=== PATIENT | female | born 1965 | race Two or more races ===

== ENCOUNTER 2023-12-05 23:18 | Emergency (ER) | payer MEDICAID, OTHER ==
[~2023-12-05] VITALS: Ht 154.9 cm; Wt 62.8 kg
[2023-12-05 23:51] LABS: Urine Bacteria None Seen /hpf (None Seen); Urine WBC None Seen /hpf (0 - 5)
[2023-12-05] MEDS ORDERED: TERB1CRE31 EX (23:55)
[2023-12-05] MEDS ORDERED: PHENSUP38 PR (23:55)
[2023-12-05] MEDS ORDERED: ACET500T58 PO (23:55)
[2023-12-05] MEDS ORDERED: IBUP-1455 PO (23:55)
[2023-12-05 23:58] LABS: Urine Blood Negative /uL (Negative); Urine Clarity Clear (Clear); Urine Protein, UAD Negative (Negative); Urine Specific Gravity 1.004 (1.001-1.035); Urine Urobilinogen Normal (Negative); Urine pH 6.5 (5.0-9.0)
[2023-12-05 23:59] LABS: Urine Color STRAW (Yellow)
[2023-12-06 00:58] VITALS: BP 135/76; PULSE 81; RESP 20; TEMP 97.8; O2SAT 95
[2023-12-06] MEDS: diphenhdrAMINE HCL 25 MG CAP PO ONE (01:28)
[2023-12-06] MEDS: DexAMETHasone SOD PHOS 10MG/1ML VIAL INJ IM ONE (01:35)
[2023-12-06] MEDS: KETOROLAC TROMETH 60MG/2ML VIAL IM ONE (01:35)
== END 2023-12-06 01:38 | disposition home or self-care (01) ==
LOC: ER 23:18
DX: K64.9 Unspecified hemorrhoids (principal); R21 Rash and other nonspecific skin eruption
CPT/HCPCS: 81001; 96372; 99284; J1100; J1885

== ENCOUNTER 2023-12-08 06:45 | Emergency (ER) | payer MEDICAID ==
[~2023-12-08] VITALS: Ht 154.9 cm; Wt 61.2 kg
[~2023-12-08 06:45] MED LIST: ACET500T58 PO; IBUP-1455 PO; PHENSUP38 PR; TERB1CRE31 EX
[2023-12-08 07:46] VITALS: BP 110/75; PULSE 77; RESP 15; TEMP 98; O2SAT 98
[2023-12-08] MEDS: FAMOTIDINE 20 MG TAB PO ONE (08:44)
[2023-12-08] MEDS: methylPREDNISolone SOD SUCC 125 MG/2 ML VL IM ONE (08:44)
[2023-12-08] MEDS: diphenhdrAMINE HCL 25 MG CAP PO ONE (08:44)
[2023-12-08] MEDS ORDERED: HYDR2.5L4 TOP (08:48)
[2023-12-08] MEDS ORDERED: PRED20TA2 PO (08:48)
== END 2023-12-08 08:55 | disposition home or self-care (01) ==
LOC: ER 06:45
DX: L25.9 Unspecified contact dermatitis, unspecified cause (principal); Z88.8 Allergy status to other drugs, medicaments and biological substances; Z79.899 Other long term (current) drug therapy
CPT/HCPCS: 96372; 99283; J2919

== ENCOUNTER 2024-03-02 20:12 | Emergency (ER) | payer MEDICAID ==
[~2024-03-02] VITALS: Ht 154.9 cm; Wt 62.4 kg
[~2024-03-02 20:12] MED LIST changes: +HYDR2.5L4 TOP; +PRED20TA2 PO
--- NOTE | 2024-03-02 20:33 | ED.PDOC ---
General HPI Comments HPI: Poor Historian. 59y/o female who presents to the ED for chief complaint of urinary problems. Pt states she has been having pain on urination and increased urinary frequency for one day. When asked only, patient says she is having some suprapubic discomfort. Pt otherwise denies nausea, vomiting, diarrhea, fever, cough, chills, or hematuria. Pt otherwise denies any other symptoms at this time. Patient denies any fever. Temp: 97.7 F Heart rate: 94 RR: 17 BP: 131/84 02 sat: 97 % on room air PMH: hypothyroidism, PSH: 2x c-sections, cholecysectomy Social history: denies tobacco use, denies ETOH use, denies drug use Meds: denies Allergies: aspirin, naproxen REVIEW OF SYSTEMS: CONSTITUTIONAL: Denies acute: fever, diaphoresis, chills, generalized weakness. HEAD: Denies acute: headache, photophobia Eyes: Denies acute: Double vision, vision loss, eye pain, eye discharge. EARS: Denies acute: tinnitus, hearing loss, ear discharge, ear pain, THROAT: Denies acute: sore throat, swelling, difficulty swallowing , pain with swallowing, change in voice. NECK: Denies acute: neck pain, neck swelling, stiff neck. HEART: Denies acute : chest pain, palpitations, LUNGS: Denies acute: SOB, wheezing, cough, hemoptysis ABDOMEN: Denies acute: abdominal pain, Nausea, Vomiting, diarrhea, melena , hematemesis, hematochezia SKIN: Denies acute: rash, redness, lesions, itchiness. EXTREMITIES: Denies acute: calf pain, numbness, tingling, weakness, denies pain in extremity. Denies acute: Low back pain. Neuro: Denies acute: focal neurological deficit, motor or sensory focal neurological deficit, tremors, seizure like activity, confusion, dizziness, change in mental status, loss of bowel or bladder function, cauda equina like symptoms. : Denies acute: hematuria, flank pain, PSYCH: Denies acute: hallucination, suicidal ideation, homicidal ideation. FEMALE: Denies acute: abnormal vaginal bleeding, foul odor, unusual discharge. PHYSICAL EXAM: General: no acute distress, awake and alert. Head: normocephalic, atraumatic. Neck: supple, trachea is midline, no swelling. Throat: Normal phonation. Eyes:, no erythema, no purulent discharge, no proptosis, no icterus. Heart: regular rate, regular rhythm, no significant murmur appreciated. Lungs: no apparent respiratory distress, Able to speak in full sentences. No wheezing, no rhonchi, no crackles. No stridors Clear to auscultation bilaterally. Abdomen: Suprapubic tender to palpation, non distended, soft, no guarding, no rebound, + bowel sounds. Neuro: Awake, Alert, oriented to name, self, situation, follows commands GCS=15. Speech is normal. Skin: no petechia, no purpura, no cyanosis, non-pale, not jaundice. Lower extremities: --no - Pitting edema no deformity, no focal swelling, no calf TTP. Makes eye contact. moves all four extremities. Face: no apparent facial droop. No CVA tenderness to percussion bilaterally. Ambulating in the ED independently. Ears: Normal appearing TM b/l, Stroke: finger to nose cerebellar testing is intact. No pronator drift. 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 No nystagmus. No nuchal rigidity, Kernig's sign, Brudzinski's sign, no meningeal signs. Chief Complaint: Urinary Time Seen by MD: 20:32 Reviewed notes: Allergies Allergies: Coded Allergies: Aspirin (Verified Allergy, Unknown, 12/08/23) Naproxen (Verified Allergy, Unknown, 12/08/23) Home Meds Active Scripts Hydrocortisone (Topical) (Hydrocortisone) 2.5 % Lot, 1 APPLIC TOP BID for 7 Days, #60 ML 0 Refills Prov:LIAM FITZGERALD HYDROPULPER 12/08/23 Prednisone (Prednisone) 20 Mg Tab, 40 MG PO DAILY for 5 Days, #10 TAB 0 Refills Prov:LIAM FITZGERALD HYDROPULPER 12/08/23 Acetaminophen (Acetaminophen) 500 Mg Tab, 500 MG PO Q4HP PRN, #20 TAB Prov:LAUREN GOFF PAC 12/05/23 Ibuprofen Micronized (Ibuprofen) 800 Mg Tab, 800 MG PO Q8HP PRN, #20 TAB Prov:LAUREN GOFF PAC 12/05/23 Phenylephrine-Shark Liver Oil- (Hemorrhoidal Suppositorie 0.25-3-85.5 %) 1 Sup Sup, 1 SUP SC BID, #20 SUPP Prov:LAUREN GOFF PAC 12/05/23 Terbinafine Hcl (Topical) ([facility]) 1 % Cre, 1 % EX BID for 14 Days, #60 CRE Prov:LAUREN GOFF PAC 12/05/23 Information Source: Patient Mode of Arrival: Ambulatory Brought in by: self Past Medical History PAST MEDICAL HISTORY: Thyroid Surgical History: Cholecystectomy, 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 Was a procedure done?: No Differential Diagnosis Kidney stone (Female): N/A Urinary Problem (Female): Other (DDX include Diverticulitis, colitis, gastroenteritis, acute abdomen, SBO, enteritis, constipation, volvulus, appendicitis, Gallbladder disease, choledocolithiasis, ascending cholangitis, pancreatitis, intraAbdominal mass/neoplasm, hepatitis, UTI, pylonephritis, kidney stone, aneurysm, dissection, Inflammatory bowel disease, gastroparesis, ischemic bowel, ovarian torsion, ovarian cyst/mass, tubo-ovarian abscess, PID, STD.), N/A X-Ray, Labs, Meds, VS Vital Signs Date Time Temp Pulse Resp B/P (MAP) Pulse Ox O2 Delivery O2 Flow Rate FiO2 03/02/24 20:20 97.7 94 17 131/84 (100) 97 Lab Test 03/02/24 20:56 03/02/24 20:40 Range/Units Urine Color Colorless Yellow Urine Clarity Clear Clear Urine pH 6.5 5.0-9.0 Urine Specific [place] 1.003 1.001-1.035 Urine Protein Negative Negative Urine Ketones Negative Negative Urine Blood 1+ H Negative /uL Urine Nitrite Negative Negative Urine Bilirubin Negative Negative Urine Urobilinogen Normal Negative mg/dL Urine Leukocyte Esterase 2+ Negative /uL Urine RBC 1 0 - 4 /hpf Urine WBC 25 0 - 5 /hpf Urine Squamous Epithelial Cells Few <5 /hpf Urine Bacteria Few H None Seen /hpf Urine Glucose Normal Normal mg/dL White Blood Count 6.5 4.4-10.8 10^3/uL Red Blood Count 4.62 4.0-5.20 10^6/uL Hemoglobin 14.5 12.2-16.2 g/dL Hematocrit 42.0 36.0-46.0 % Mean Corpuscular Volume 90.8 80.0-100.0 fL Mean Corpuscular Hemoglobin 31.3 28.0-32.0 pg Mean Corpuscular Hemoglobin Concent 34.5 32.0-36.0 g/dL Red Cell Distribution Width 13.0 11.8-14.3 % Platelet Count 303 140-450 10^3/uL Mean Platelet Volume 7.7 6.9-10.8 fL Neutrophils (%) (Auto) 54.9 37.0-80.0 % Lymphocytes (%) (Auto) 34.3 10.0-50.0 % Monocytes (%) (Auto) 8.0 0.0-12.0 % Eosinophils (%) (Auto) 2.2 0.0-7.0 % Basophils (%) (Auto) 0.6 0.0-2.0 % Neutrophils # (Auto) 3.6 1.6-8.6 10 ^3/uL Lymphocytes # (Auto) 2.2 0.4-5.4 10 ^3/uL Monocytes # (Auto) 0.5 0-1.3 10 ^3/uL Eosinophils # (Auto) 0.1 0-0.8 10 ^3/uL Basophils # (Auto) 0 0-0.2 10 ^3/uL Nucleated Red Blood Cells 0.0 % Sodium Level 142 136-145 mmol/L Potassium Level 3.8 3.5-5.1 mmol/L Chloride Level 108 H 98-107 mmol/L Carbon Dioxide Level 26 20-31 mmol/L Anion Gap 8 5-15 Blood Urea Nitrogen 8 L 9-23 mg/dL Creatinine 0.68 0.550-1.02 mg/dL Glomerular Filtration Rate Calc 102 >90 mL/min BUN/Creatinine Ratio 11.8 10.0-20.0 Serum Glucose 98 74-106 mg/dL Lactic Acid Level 1.1 0.4-2.0 mmol/L Calcium Level 10.0 8.7-10.4 mg/dL Total Bilirubin 0.4 0.2-1.0 mg/dL Aspartate Amino Transferase (AST) 13 13-40 U/L Alanine Aminotransferase (ALT) 19 7-40 U/L Alkaline Phosphatase 84 46-116 U/L Troponin I High Sensitivity < 3 L </=34 ng/L Total Protein 7.5 5.7-8.2 g/dL Albumin 4.8 3.2-4.8 g/dL Lipase 52 12-53 U/L [address] [address] Ph: [phone] DIAGNOSTIC IMAGING Diagnostic Imaging Report : [id number] Signed PATIENT: MELYSSA BRITTONACCT: [id number] UNIT: [id number] : 1965 LOC: ER ROOM / BED: / AGE / SEX: 59 / F ADM STATUS: REG ER SERVICE 25 ORDERING PHYSICIAN: KEVEN FRANCOIS DO PROCEDURE(s): ABPL - CT AB PEL WO CON-NO ORAL OR IV REASON: suprapubic pain ORDER NUMBER(s): [id number], ACCESSION NUMBER(s): [id number] CLINICAL HISTORY: suprapubic pain TECHNIQUE: CT of the abdomen and pelvis was performed without intravenous contrast. This exam was performed according to our departmental dose optimization program. Up-to-date CT equipment and radiation dose reduction techniques are utilized as appropriate. CTDI: [CTDIvol] DLP: 389.36 WID: COMPARISON: None FINDINGS: Lower Thorax: Unremarkable. Liver and Biliary system: Mild hepatomegaly measuring 19 cm craniocaudal. Prior cholecystectomy. No definite hepatic lesion. No biliary ductal dilatation Spleen: Unremarkable. Adrenal Glands and Kidneys: Unremarkable. Pancreas and Retroperitoneum: Unremarkable. Aorta and Major Vessels: Unremarkable. Bowel, Mesentery and Peritoneal space: The small and large bowel loops are normal in caliber. Normal appendix. Mild distal colonic diverticulosis. No free air or fluid collection. Pelvis: Unremarkable. Abdominal wall and Osseous Structures: Mild multilevel lower thoracic and lumbar spondylosis with moderate degenerative disc disease seen at L5-S1. No destructive osseous lesion. IMPRESSION: 1. No bowel obstruction, fluid collection, or free air. Normal appendix 2. Mild distal colonic diverticulosis 3. Mild hepatomegaly. ATED BY: MATTHEW FERRER MD DICTATED DATE/TIME: 03/02/242216 SIGNED BY: MATTHEW FERRER MD SIGNED DATE/TIME: 03/02/242216 CC: Time of 1ST Reevaluation: 22:26 Reevaluation 1ST: Improved Patient Education/Counseling: Diagnosis, Treatment Family Education/Counseling: No Family Present Comments Patient presented with the above HPI.---suprapubic/urinary symptoms---workup was initiated. patient was found with the above mentioned diagnosis. Patient was given: [place], Rocephin, fluids. Patient ED course and VS have been stabilized. Patient has been reassessed in the ED and remained in a stable condition. Pertinent incidental findings were discussed with the patient and/or family. Patient/family voices understanding and is agreeable with plan. Patient has been observed in the ED adequate length of time to insure improvement/stability. patient was discharged home in a stable condition All the reports of any imaging studies that were ordered by myself were reviewed by myself. Departure 1 Departure Time of Disposition: 21:11 Impression: Primary Impression: UTI (urinary tract infection) Disposition: 01 HOME / SELF CARE / HOMELESS Condition: Stable Additional Instructions: Additional discharge instructions: You MUST follow-up with your primary care/family doctor in 1 to 2 days. If you are unable to see your primary care/family doctor, please return to our emergency room for re-assessment and re-evaluation in 1 to 2 days. Return to the emergency room here in our facility or to the nearest ER [facility] if your symptoms change or worsen. CONSULTATIONS: you MUST Follow-up for consultation as soon as possible with: urology and OB Gyne doctor in 1-2 days. Please call for appointment. You MUST call the consultants office yourself to make an appointment. You may need to arrange that through your insurance and/or your primary/family doctor. If you are unable to see the polymer materials consultant in 1 to 2 days, you must return to our emergency room (or any other ER of your choice) for re-assessment and re- evaluation. Adequate fluid hydration. here is a copy of your radiology report performed in the ED: [address], [place] - [address] Ph: [phone] DIAGNOSTIC IMAGING Diagnostic Imaging Report : [id number] Signed PATIENT: MELYSSA BRITTON ACCT: [id number] UNIT: [id number] : 1965 LOC: ER ROOM / BED: / AGE / SEX: 59 / F ADM STATUS: REG ER SERVICE 25 ORDERING PHYSICIAN: KEVEN FRANCOIS DO PROCEDURE(s): ABPL - CT AB PEL WO CON-NO ORAL OR IV REASON: suprapubic pain ORDER NUMBER(s): [id number], ACCESSION NUMBER(s): [id number] CLINICAL HISTORY: suprapubic pain TECHNIQUE: CT of the abdomen and pelvis was performed without intravenous contrast. This exam was performed according to our departmental dose optimization program. Up-to-date CT equipment and radiation dose reduction techniques are utilized as appropriate. CTDI: [CTDIvol] DLP: 389.36 WID: COMPARISON: None FINDINGS: Lower Thorax: Unremarkable. Liver and Biliary system: Mild hepatomegaly measuring 19 cm craniocaudal. Prior cholecystectomy. No definite hepatic lesion. No biliary ductal dilatation Spleen: Unremarkable. Adrenal Glands and Kidneys: Unremarkable. Pancreas and Retroperitoneum: Unremarkable. Aorta and Major Vessels: Unremarkable. Bowel, Mesentery and Peritoneal space: The small and large bowel loops are normal in caliber. Normal appendix. Mild distal colonic diverticulosis. No free air or fluid collection. Pelvis: Unremarkable. Abdominal wall and Osseous Structures: Mild multilevel lower thoracic and lumbar spondylosis with moderate degenerative disc disease seen at L5-S1. No destructive osseous lesion. IMPRESSION: 1. No bowel obstruction, fluid collection, or free air. Normal appendix 2. Mild distal colonic diverticulosis 3. Mild hepatomegaly. ATED BY: MATTHEW FERRER MD DICTATED DATE/TIME: 03/02/242216 SIGNED BY: MATTHEW FERRER MD SIGNED DATE/TIME: 03/02/242216 CC: e-Prescriptions Nitrofurantoin Monohydrate Mac (Macrobid) 100 Mg Cap 100 MG PO BID for 7 Days, #14 CAP Prov: KEVEN FRANCOIS DO 03/02/24 Discharged With: Self Critical Care Note Critical Care Time?: No I personally scribed for KEVEN FRANCOIS DO ([facility]) on 03/02/24 at 20:33. Electronically submitted by Paulo Rasmussen [facility] I personally scribed for KEVEN FRANCOIS DO ([email or web address]) on 03/02/24 at 22:22. Electronically submitted by Paulo Rasmussen ([facility] KEVEN FRANCOIS DO Mar 02, 2024 20:33
[2024-03-02 21:03] LABS: Basophils # (auto) 0 10 ^3/uL (0-0.2); Basophils % (auto) 0.6 % (0.0-2.0); Eosinophils # (auto) 0.1 10 ^3/uL (0-0.8); Eosinophils % (auto) 2.2 % (0.0-7.0); Hemoglobin 14.5 g/dL (12.2-16.2); Lymphocytes # (auto) 2.2 10 ^3/uL (0.4-5.4); Lymphocytes % (auto) 34.3 % (10.0-50.0); Mean Corpuscular Hemoglobin 31.3 pg (28.0-32.0); Mean Corpuscular Hgb Conc. 34.5 g/dL (32.0-36.0); Mean Corpuscular Volume 90.8 fL (80.0-100.0); Monocytes # (auto) 0.5 10 ^3/uL (0-1.3); Neutrophils # (auto) 3.6 10 ^3/uL (1.6-8.6); Neutrophils % (auto) 54.9 % (37.0-80.0); Platelet Count (auto) 303 10^3/uL (140-450); Red Blood Cells 4.62 10^6/uL (4.0-5.20); White Blood Cell 6.5 10^3/uL (4.4-10.8)
[2024-03-02 21:09] LABS: Urine Bacteria FEW /hpf (None Seen); Urine Blood 1+ /uL (Negative); Urine Clarity Clear (Clear); Urine Color Colorless (Yellow); Urine Protein, UAD Negative (Negative); Urine Specific Gravity 1.003 (1.001-1.035); Urine Urobilinogen Normal (Negative); Urine WBC 25 /hpf (0 - 5); Urine pH 6.5 (5.0-9.0)
[2024-03-02 21:24] LABS: Alanine Aminotransferase 19 U/L (7-40); Albumin 4.8 g/dL (3.2-4.8); Alkaline Phosphatase 84 U/L (46-116); Anion Gap 8 (5-15); Aspartate Aminotransferase 13 U/L (13-40); BUN/Creatinine Ratio 11.8 (10.0-20.0); Bilirubin, Total 0.4 mg/dL (0.2-1.0); Blood Urea Nitrogen 8 mg/dL (9-23); Carbon Dioxide 26 mmol/L (20-31); Chloride 108 mmol/L (98-107); Glucose 98 mg/dL (74-106); Lipase 52 U/L (12-53); Potassium 3.8 mmol/L (3.5-5.1); Sodium 142 mmol/L (136-145); Total Protein 7.5 g/dL (5.7-8.2)
--- NOTE | 2024-03-02 22:20 | DVH ---
CLINICAL HISTORY: suprapubic pain TECHNIQUE: CT of the abdomen and pelvis was performed without intravenous contrast. This exam was per formed according to our departmental dose optimization program. Up-to-date CT equipment and radiation dose reduction techniques are utilized as appropriate. CTDI: [CTDIvol] DLP: 389.36 WID: COMPARISON: None FINDINGS: Lower Thorax: Unremarkable. Liver and Biliary system: Mild hepatomegaly measuring 19 cm craniocaudal. Prior cholecystectomy. No d efinite hepatic lesion. No biliary ductal dilatation Spleen: Unremarkable. Adrenal Glands and Kidneys: Unremarkable. Pancreas and Retroperitoneum: Unremarkable. Aorta and Major Vessels: Unremarkable. Bowel, Mesentery and Peritoneal space: The small and large bowel loops are normal in caliber. Normal appendix. Mild distal colonic diverticulosis. No free air or fluid collection. Pelvis: Unremarkable. Abdominal wall and Osseous Structures: Mild multilevel lower thoracic and lumbar spondylosis with mod erate degenerative disc disease seen at L5-S1. No destructive osseous lesion. IMPRESSION: 1. No bowel obstruction, fluid collection, or free air. Normal appendix 2. Mild distal colonic diverticulosis 3. Mild hepatomegaly.
[2024-03-02] MEDS ORDERED: NITR-87 PO (22:28)
[2024-03-02 22:35] VITALS: BP 135/73; PULSE 94; RESP 18; TEMP 98.4; O2SAT 96
[2024-03-02] MEDS: HYDROcodone-ACET 5/325MG TAB PO ONE (23:33)
[2024-03-02] MEDS: SODIUM CHLORIDE 0.9% 1,000 ML IV ONE (23:50)
[2024-03-02] MEDS: cefTRIAXone 1GM/50ML D5W 50 ML IV ONE (23:50)
== END 2024-03-03 00:59 | disposition home or self-care (01) ==
LOC: ER 20:12
DX: N39.0 Urinary tract infection, site not specified (principal); E03.9 Hypothyroidism, unspecified; Z98.890 Other specified postprocedural states; Z88.8 Allergy status to other drugs, medicaments and biological substances
CPT/HCPCS: 36415; 74176; 80053; 81001; 83605; 83690; 84484; 85025; 96365; 99285; J0696; J7030